=== PATIENT | male | born 1990 | race Asian ===

== ENCOUNTER 2017-01-16 09:15 | Outpatient (RCR) | payer BC | END 2017-01-20 | disposition home or self-care (01) | LOC: WSST | DX: F89 Unspecified disorder of psychological development (principal) ==

== ENCOUNTER 2017-03-11 10:15 | Outpatient (RCR) | payer BC | END 2017-04-21 | disposition home or self-care (01) | LOC: WSST | DX: R62.50 Unspecified lack of expected normal physiological development in childhood (principal) ==